=== PATIENT | male | born 1940 | race Caucasian/White ===

== ENCOUNTER 2017-12-12 11:32 | Emergency (ER) | payer MEDICARE, OTHER ==
[~2017-12-12] VITALS: Ht 170.2 cm; Wt 80.0 kg
[2017-12-12 11:45] VITALS: BP 168/98; PULSE 81; RESP 18; TEMP 98.1; O2SAT 95
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
[2017-12-12] MEDS ORDERED: ARIC5TAB6 (12:19)
[2017-12-12] MEDS ORDERED: FOLI400T PO (12:19)
[2017-12-12] MEDS ORDERED: GABA300C5 PO ×2 (12:19)
[2017-12-12] MEDS ORDERED: ASPI81TA23 PO (12:19)
[2017-12-12] MEDS ORDERED: DEXI60CA3 (12:19)
[2017-12-12] MEDS ORDERED: AMLO10TA2 PO (12:19)
[2017-12-12] MEDS ORDERED: LISI40TA PO (12:21)
[2017-12-12] MEDS ORDERED: FERR325T18 PO (12:21)
[2017-12-12] MEDS ORDERED: MIRA25TA PO (12:21)
[2017-12-12] MEDS ORDERED: MAGN500T5 PO (12:21)
[2017-12-12] MEDS ORDERED: TRAM50TA PO (12:21)
== END 2017-12-12 14:52 | disposition home or self-care (01) ==
LOC: NEPC 11:32
DX: L25.3 Unspecified contact dermatitis due to other chemical products (principal); E11.9 Type 2 diabetes mellitus without complications; Z79.82 Long term (current) use of aspirin; Z79.899 Other long term (current) drug therapy
CPT/HCPCS: 99283